=== PATIENT | female | born 1990 | race Caucasian/White ===

== ENCOUNTER 2020-09-24 12:54 | Emergency (ER) | payer OTHER ==
[~2020-09-24] VITALS: Ht 160 cm; Wt 77.6 kg
[2020-09-24 13:19] VITALS: TEMP 98.3
[2020-09-24 13:50] LABS: COLLECTION METHOD CLEAN CATCH
[2020-09-24 14:02] LABS: BASO # 0.1 (0.0-0.2); BASO % 0.5 % (0.0-2.0); EOS # 0.1 (0.0-0.7); EOS % 0.9 % (0-4.0); GRAN # 11.5 (1.4-6.5); GRAN % 77.3 % (42.2-75.2); HEMATOCRIT 43.3 % (37.0-47.0); HEMOGLOBIN 14.7 g/dl (12.5-16.0); LYMPH # 2.1 (1.2-3.4); MEAN CELL VOLUME 91 fl (80.0-100.0); MEAN CORPUSCULAR HEMOGLOBIN 31 pg (27.0-31.0); MEAN CORPUSCULAR HGB CONC 34 g/dl (33.0-37.0); MEAN PLATELET VOLUME 9.5 fl (7.4-10.4); MONO % 6.4 % (1.7-9.3); PLATELET COUNT 247 K/mm3 (130-400); RED BLOOD COUNT 4.77 M/mm3 (4.10-5.30); REDCELL DISTRIBUTION WIDTH-CV 13.2 % (11.5-14.5)
[2020-09-24 14:06] LABS: MUCOUS Present /lpf; PH 6 (5-8); SQUAMOUS EPITHELIAL 0-2 /hpf; URINE APPEARANCE Clear; URINE BACTERIA None Seen /hpf; URINE BILIRUBIN Negative (NEGATIVE); URINE BLOOD 1+ (NEGATIVE); URINE COLOR Yellow; URINE GLUCOSE Negative (NEGATIVE); URINE KETONE Negative (NEGATIVE); URINE LEUKOCYTE ESTERASE Negative (NEGATIVE); URINE NITRATE Negative (NEGATIVE); URINE PROTEIN(semi-quant) Negative (NEGATIVE); URINE UROBILINOGEN Negative (NEGATIVE)
[2020-09-24 14:25] LABS: ALBUMIN 4.4 gm/dL (3.5-5.0); BILIRUBIN,TOTAL 0.7 mg/dL (0.0-1.0); C-REACTIVE PROTEIN 2.1 mg/dL (0.0-0.9); CALCIUM 8.8 mg/dL (8.4-10.2); CREATININE, serum 0.75 (0.52-1.25); POTASSIUM 3.7 mmol/L (3.4-5.0); TOTAL PROTEIN 7.5 gm/dL (6.4-8.2)
[2020-09-24 15:47] VITALS: BP 105/69; PULSE 82
== END 2020-09-24 15:54 | disposition home or self-care (01) ==
LOC: COL.ER 12:54
PROVIDERS: Family Medicine
DX: N20.0 Calculus of kidney (principal); Z87.442 Personal history of urinary calculi; F17.210 Nicotine dependence, cigarettes, uncomplicated; Z88.8 Allergy status to other drugs, medicaments and biological substances
CPT/HCPCS: J1885; J2405; J7120

== ENCOUNTER 2020-11-10 21:52 | Inpatient (IN) | payer OTHER ==
[~2020-11-10] VITALS: Ht 157.5 cm; Wt 69.5 kg
[2020-11-11] VITALS: BP 101/78; PULSE 87; TEMP 98.2
[2020-11-11] MEDS ORDERED: TOPAMAX 100MG100 M1 PO (02:05)
[2020-11-11] MEDS ORDERED: LEXAPRO20 MG PO (02:05)
--- NOTE | 2020-11-11 03:37 | NUR ---
Patient arrived via EMS from [facility]. Her vitals are stable and she is stable on her feet. She complains of 10/10 pain on her back/right flank. She said she normally takes a duilauded/morphine alternating regimin during hospital stays and she finds it very effecient. Estella ROTH did a full assessment and spoke to the patient. Pain medicine were administered, bladder scan showed only 17cc's; potassium via E[place]-k was given. Origionally IV potassium was started but the patient started crying, I even started it at 20cc/hr instead of 100cc/hr and she was on the verge of tears. She just mentioned the duilauded/morphone combo hasn't done anything for her. She now says the only thing that works for her pain was fentanyl, that EMS gave her for the ride here.
[2020-11-11 03:39] VITALS: BP 104/68; PULSE 69; TEMP 98.3
[2020-11-11 07:30] LABS: BASO # 0.1 (0.0-0.2); BASO % 0.8 % (0.0-2.0); EOS # 0.3 (0.0-0.7); EOS % 2.5 % (0-4.0); GRAN # 7.7 (1.4-6.5); HEMOGLOBIN 10.6 g/dl (12.5-16.0); LYMPH # 3.7 (1.2-3.4); LYMPH % 28.5 % (20.0-51.0); MEAN CELL VOLUME 95 fl (80.0-100.0); MEAN CORPUSCULAR HEMOGLOBIN 31 pg (27.0-31.0); MEAN CORPUSCULAR HGB CONC 33 g/dl (33.0-37.0); MEAN PLATELET VOLUME 9.8 fl (7.4-10.4); MONO # 1.2 (0.1-0.6); MONO % 8.8 % (1.7-9.3); PLATELET COUNT 309 K/mm3 (130-400); RED BLOOD COUNT 3.42 M/mm3 (4.10-5.30); REDCELL DISTRIBUTION WIDTH-CV 13.6 % (11.5-14.5)
[2020-11-11 07:33] LABS: HEMATOCRIT 32.4 % (37.0-47.0)
[2020-11-11 07:35] LABS: CALCIUM 8.5 mg/dL (8.4-10.2); CREATININE, serum 0.85 (0.52-1.25); POTASSIUM 3.7 mmol/L (3.4-5.0)
[2020-11-11 08:00] VITALS: BP 102/52; PULSE 70; TEMP 98.2
--- NOTE | 2020-11-11 08:14 | NUR ---
Dr Johansen in to see pt around 0715. Was present during his rounding. No new orders noted. Asked pt if she needed anything at that time and she reported just something to eat. No other needs verbalized at that time. Pt rang call light around 0800 asking for pain medication. Upon entering room pt stated that she had been waiting for 2 hours for something for pain. She is very drowsy with her eyes closed most of the time during my assessment. Rates pain a 9/10. While Dr Johansen was in room, pt stated she would prefer no surgery today. No other needs verbalized at this time, call light within reach
[2020-11-11] MEDS ORDERED: VANTIN100 MG PO (10:06)
[2020-11-11] MEDS ORDERED: VANCOCIN H125 MG/CAP PO (10:06)
[2020-11-11] MEDS ORDERED: NORCO 325 MG-51 TAB PO (10:09)
[2020-11-11 10:30] LABS: CLOSTRIDIUM DIFF A/B NEG; CLOSTRIDIUM DIFF A/B INTERP No C.diff present
--- NOTE | 2020-11-11 10:45 | NUR ---
Pt rang for pain medication around 1015 as I was in another room. Went to give pain medication as soon as I could. I initially took in a [place] as she has orders and is aware that she is going home. She started immediately crying because it wasn't IV. I informed her that she will not be able to get the IV medication at home and that I was concerned sending her home still needing it. Informed her that she has gotten a lot since she has been here. She stated that she just needed something that would work quickly. She was on the phone facetiming with someone during this time. Oral and IV pain medication given.
--- NOTE | 2020-11-11 11:15 | NUR ---
Pt sitting up in bed talking on the phone, appears to be comfortable. Pt appologized for her behavior earlier and is still planning/wanting to go home
[2020-11-11] MEDS ORDERED: PYRIDIUM 100MG100 MG PO (11:17)
[2020-11-11] MEDS ORDERED: FLOMAX 0.40.4 MG/CAP PO (11:17)
--- NOTE | 2020-11-11 12:00 | NUR ---
Pt sitting up in bed eating lunch. She does have a visitor in the room with her. She stated that the pain is tolerable at this time. Asked about discharge, she stated she was ready to go at any time. Informed her I would start working on paperwork, let her finish eating and that I would be in.
--- NOTE | 2020-11-11 12:30 | NUR ---
Reviewed discharge instructions with pt to include follow up appointments and prescriptions. Pt verbalized understanding, all questions answered. Pt states that her pain is tolerable at this time. She did eat and tolerate a general diet.
--- NOTE | 2020-11-11 12:56 | NUR ---
Pt escorted out at this time
== END 2020-11-11 12:58 | disposition home or self-care (01) | DRG 920 ==
LOC: MEDICAL 21:52 → SURG 23:30
PROVIDERS: Student in an Organized Health Care Education/Training Program; ADMIT Family Medicine
DX: N99.840 Postprocedural hematoma of a genitourinary system organ or structure following a genitourinary system procedure (principal); N39.0 Urinary tract infection, site not specified; A04.72 Enterocolitis due to Clostridium difficile, not specified as recurrent; N13.30 Unspecified hydronephrosis; E87.6 Hypokalemia; F32.9 Major depressive disorder, single episode, unspecified; F41.9 Anxiety disorder, unspecified; G43.909 Migraine, unspecified, not intractable, without status migrainosus; F17.210 Nicotine dependence, cigarettes, uncomplicated; R33.9 Retention of urine, unspecified; Z88.8 Allergy status to other drugs, medicaments and biological substances
CPT/HCPCS: 99223-AI; J1170; J1885; J2270; J3480; J7030